=== PATIENT | male | born 1950 | race Caucasian/White ===

== ENCOUNTER → 2016-12-29 | Outpatient (CLI) | payer MEDICARE ==
[2016-12-29 12:54] LABS: HEMOGLOBIN 13.9 gm/dl (14.0-17.5); RED BLOOD COUNT 4.38 M/UL (4.20-5.50); WHITE BLOOD COUNT 5.7 K/UL (4.5-11.0)
[2016-12-29 13:15] LABS: BUN/CREATININE RATIO 30 (0-10)
== END ==
LOC: LAB 10:18
PROVIDERS: Nurse Practitioner Family
DX: Z11.59 Encounter for screening for other viral diseases (principal); E11.9 Type 2 diabetes mellitus without complications; E53.8 Deficiency of other specified B group vitamins; E55.9 Vitamin D deficiency, unspecified; E78.4 Other hyperlipidemia; N40.1 Benign prostatic hyperplasia with lower urinary tract symptoms; K52.9 Noninfective gastroenteritis and colitis, unspecified
CPT/HCPCS: 36415; 80048; 80061; 80076; 82043; 82570; 82607; 83036; 84153; 84443; 85025; 86803

== ENCOUNTER → 2017-01-01 | Outpatient (CLI) | payer MEDICARE, OTHER | LOC: CT 12:57 | DX: R63.4 Abnormal weight loss (principal); K52.9 Noninfective gastroenteritis and colitis, unspecified; R04.2 Hemoptysis; R07.81 Pleurodynia | CPT/HCPCS: 71270; J7050; Q9962 ==

== ENCOUNTER → 2021-02-27 | Outpatient (CLI) | payer OTHER ==
[~2021-02-27] MED LIST: ALBUTEROL2.5 MG/3 M INH; ALPRAZOLAM0.5 MG PO; COREG 3.125M3.125 MG PO; COREG6.25 MG PO; COUMADIN1 MG PO; COUMADIN5 MG PO; CYMBALTA60 MG PO; DEPAKOTE ER500 MG PO; DIOVAN40 MG PO; ELIQUIS5 MG PO; GLUCOTROL XL 5 M5 MG PO; HUMALOG100 UNIT/2 SQ; IMDUR ER TAB 3030 MG PO; JARDIANCE25 MG PO; LASIX20 MG PO; MEGACE 400400 MG/10 PO; MEGACE TAB 40 M40 MG PO; MIRTAZAPINE45 MG PO; MYRBETRIQ50 MG PO; NAMENDA5 MG PO; NOVOLOG FL100 UNIT/1 SC; PREDNISONE20 MG PO; PROTONIX40 MG PO; SINEMET PO; SPIRIVA HANDIH18 MCG INH; SPIRIVA RESPIMAT4 GM INH; SYMBICORT 16010.2 GM INH; TRUJEO SQ; VIBRAMYCIN100 MG PO; WELLBUTRIN SR200 MG PO; ZOLOFT50 MG PO; [UNRECOGNIZED DRUG - OTHER] PO
== END ==
LOC: EXRD 02-21 15:00
DX: M79.605 Pain in left leg (principal); M79.604 Pain in right leg; R09.89 Other specified symptoms and signs involving the circulatory and respiratory systems
CPT/HCPCS: 93922; 93925

== ENCOUNTER 2021-04-21 19:51 | Inpatient (IN) | payer OTHER ==
[~2021-04-21] VITALS: Ht 165 cm; Wt 61.0 kg
[~2021-04-21 19:51] MED LIST changes: -ALBUTEROL2.5 MG/3 M INH; -COREG6.25 MG PO; -DIOVAN40 MG PO; -ELIQUIS5 MG PO; -MIRTAZAPINE45 MG PO; -NAMENDA5 MG PO; -SYMBICORT 16010.2 GM INH; -TRUJEO SQ
[2021-04-21 20:08] LABS: HEMOGLOBIN 14.8 gm/dl (14.0-17.5); RED BLOOD COUNT 4.54 M/UL (4.20-5.50); WHITE BLOOD COUNT 10.7 K/UL (4.5-11.0)
[2021-04-21 20:38] LABS: BUN/CREATININE RATIO 22 (0-10)
[2021-04-22] MEDS ORDERED: NITROSTAT 0.40.4 MG SL (00:13)
[2021-04-22] MEDS ORDERED: IPRAT-ALBUT 0.5-3 ML INH ×2 (00:13→14:56)
[2021-04-22 03:21] LABS: HEMOGLOBIN 13.2 gm/dl (14.0-17.5); RED BLOOD COUNT 4.11 M/UL (4.20-5.50)
[2021-04-22 03:23] LABS: WHITE BLOOD COUNT 7.8 K/UL (4.5-11.0)
[2021-04-22 03:40] LABS: BUN/CREATININE RATIO 26 (0-10)
[2021-04-22] MEDS ORDERED: REMERON30 MG PO (08:15)
[2021-04-22] MEDS ORDERED: NAMENDA5 MG PO (08:20)
[2021-04-22] MEDS ORDERED: COREG6.25 MG PO (10:37)
[2021-04-22] MEDS ORDERED: DEPAKOTE ER500 MG PO (10:39)
[2021-04-22] MEDS ORDERED: ELIQUIS5 MG PO (10:40)
[2021-04-22] MEDS ORDERED: TOUJEO MAX300 UNIT/1 SC (10:55)
[2021-04-22] MEDS ORDERED: DIOVAN80 MG PO (11:59)
[2021-04-22] MEDS ORDERED: WELCHOL 625 MG625 MG PO (14:55)
[2021-04-22] MEDS ORDERED: PULMICORT0.5 MG/2 M INH (14:56)
[2021-04-22] MEDS ORDERED: BACTROBAN OINT22 GM TOP (14:59)
[2021-04-22] MEDS ORDERED: KETOCONAZOLE120 ML TOP (15:01)
[2021-04-22] MEDS ORDERED: GLUCOTROL XL 5 M5 MG PO (18:16)
[2021-04-22] MEDS ORDERED: SYMBICORT 16010.2 GM INH (18:21)
[2021-04-22] MEDS ORDERED: IPRAT-ALBUT 0.5-3 ML NEB (18:22)
[2021-04-23 03:16] LABS: HEMOGLOBIN 12.7 gm/dl (14.0-17.5); RED BLOOD COUNT 3.93 M/UL (4.20-5.50); WHITE BLOOD COUNT 7.1 K/UL (4.5-11.0)
[2021-04-23 03:44] LABS: BUN/CREATININE RATIO 22 (0-10)
[2021-04-24 03:08] LABS: HEMOGLOBIN 13.3 gm/dl (14.0-17.5); RED BLOOD COUNT 4.08 M/UL (4.20-5.50); WHITE BLOOD COUNT 7.4 K/UL (4.5-11.0)
[2021-04-24 03:38] LABS: BUN/CREATININE RATIO 26 (0-10)
[2021-04-24] MEDS ORDERED: LEVOFLOXACIN500 MG PO (10:07)
[2021-04-24] MEDS ORDERED: DIOVAN80 MG PO (10:07)
[2021-04-24] MEDS ORDERED: DALIRESP500 MCG PO (10:07)
== END 2021-04-24 14:00 | disposition home or self-care (01) | DRG 189 ==
LOC: ER1 19:51 → CDU 22:25 → PROG CARE 23:54
PROVIDERS: Family Medicine; Internal Medicine; ADMIT Family Medicine
PROC: 5A09457 Assistance with Respiratory Ventilation, 24-96 Consecutive Hours, Continuous Positive Airway Pressure (ICD-10-PCS; principal; 2021-04-21)
DX: J96.21 Acute and chronic respiratory failure with hypoxia (principal); G93.41 Metabolic encephalopathy; J44.1 Chronic obstructive pulmonary disease with (acute) exacerbation; I50.22 Chronic systolic (congestive) heart failure; Z20.822 Contact with and (suspected) exposure to COVID-19; F01.50 Vascular dementia, unspecified severity, without behavioral disturbance, psychotic disturbance, mood disturbance, and anxiety; J96.02 Acute respiratory failure with hypercapnia; I25.10 Atherosclerotic heart disease of native coronary artery without angina pectoris; I11.0 Hypertensive heart disease with heart failure; F32.9 Major depressive disorder, single episode, unspecified; J20.9 Acute bronchitis, unspecified; I95.9 Hypotension, unspecified; J96.22 Acute and chronic respiratory failure with hypercapnia; E11.9 Type 2 diabetes mellitus without complications; E78.00 Pure hypercholesterolemia, unspecified; Z95.1 Presence of aortocoronary bypass graft; Z88.0 Allergy status to penicillin; Z86.73 Personal history of transient ischemic attack (TIA), and cerebral infarction without residual deficits; Z95.5 Presence of coronary angioplasty implant and graft; Z86.718 Personal history of other venous thrombosis and embolism; Z79.01 Long term (current) use of anticoagulants; Z86.711 Personal history of pulmonary embolism; Z82.49 Family history of ischemic heart disease and other diseases of the circulatory system; Z83.3 Family history of diabetes mellitus
CPT/HCPCS: 36415; 36600; 70450; 71045; 80048; 80053; 82550; 82553; 82803; 82962; 83605; 83735; 83874; 83880; 84484; 85025; 85027; 93005; 94640; 94660; 94664; 94760; 99285; G0480; J1956; J7030; U0002

== ENCOUNTER → 2021-05-27 | Outpatient (CLI) | payer OTHER ==
[~2021-05-27] MED LIST changes: +BACTROBAN OINT22 GM TOP; +COREG6.25 MG PO; +DALIRESP500 MCG PO; +DIOVAN80 MG PO; +ELIQUIS5 MG PO; +IPRAT-ALBUT 0.5-3 ML INH; +IPRAT-ALBUT 0.5-3 ML NEB; +KETOCONAZOLE120 ML TOP; +LEVOFLOXACIN500 MG PO; +NAMENDA5 MG PO; +NITROSTAT 0.40.4 MG SL; +PULMICORT0.5 MG/2 M INH; +REMERON30 MG PO; +SYMBICORT 16010.2 GM INH; +TOUJEO MAX300 UNIT/1 SC; +WELCHOL 625 MG625 MG PO
== END ==
LOC: RT 15:20
DX: J96.11 Chronic respiratory failure with hypoxia (principal); Z99.81 Dependence on supplemental oxygen
CPT/HCPCS: 36600; 82803

== ENCOUNTER → 2021-06-27 | Outpatient (CLI) | payer OTHER | LOC: RAD 12:43 | DX: M47.26 Other spondylosis with radiculopathy, lumbar region (principal) | CPT/HCPCS: 72100 ==

== ENCOUNTER → 2021-07-13 | Outpatient (CLI) | payer OTHER | LOC: RAD 11:28 | DX: R04.2 Hemoptysis (principal) | CPT/HCPCS: 71046 ==

== ENCOUNTER → 2021-08-12 | Outpatient (CLI) | payer OTHER | LOC: RAD 12:19 | DX: R05.9 Cough, unspecified (principal); J43.9 Emphysema, unspecified | CPT/HCPCS: 71046 ==

== ENCOUNTER → 2021-10-14 | Outpatient (CLI) | payer OTHER | LOC: CT 09:00 | DX: R27.0 Ataxia, unspecified (principal); R63.0 Anorexia; R63.4 Abnormal weight loss; N20.0 Calculus of kidney; N28.1 Cyst of kidney, acquired | CPT/HCPCS: 36415; 70551; 82565; 84520; Q9967 ==

== ENCOUNTER → 2022-01-26 | Outpatient (CLI) | payer OTHER | LOC: KOH-I 16:08 | DX: N20.0 Calculus of kidney (principal); R14.3 Flatulence | CPT/HCPCS: 74019 ==

== ENCOUNTER 2022-05-01 14:51 | Emergency (ER) | payer OTHER ==
[2022-05-01 16:22] LABS: HEMOGLOBIN 12.6 gm/dl (14.0-17.5); RED BLOOD COUNT 3.86 M/UL (4.20-5.50)
[2022-05-01 16:38] LABS: BUN/CREATININE RATIO 28 (0-10)
== END 2022-05-01 19:48 | disposition home or self-care (01) ==
LOC: ER1 14:51
PROVIDERS: Physician Assistant
DX: R07.89 Other chest pain (principal); R06.02 Shortness of breath; I11.0 Hypertensive heart disease with heart failure; I50.9 Heart failure, unspecified; I25.2 Old myocardial infarction; E11.9 Type 2 diabetes mellitus without complications; E78.5 Hyperlipidemia, unspecified; I42.9 Cardiomyopathy, unspecified; J44.9 Chronic obstructive pulmonary disease, unspecified; F17.210 Nicotine dependence, cigarettes, uncomplicated; Z86.718 Personal history of other venous thrombosis and embolism; Z86.711 Personal history of pulmonary embolism; Z88.0 Allergy status to penicillin
CPT/HCPCS: 36600; 71045; 80053; 82550; 82553; 82803; 84484; 85025; 94664; 99285; Q9967